=== PATIENT | female | born 1940 | race African-American/Black ===

== ENCOUNTER 2022-04-26 10:59 | Outpatient (CLI) | payer MEDICARE | END 2022-04-26 11:00 | disposition home or self-care (01) | LOC: CSHRAD 10:59 | PROVIDERS: ATTEND Internal Medicine | DX: M79.672 Pain in left foot (principal) ==

== ENCOUNTER 2022-12-17 10:08 | Outpatient (CLI) | payer MEDICARE | END 2022-12-17 10:09 | disposition home or self-care (01) | LOC: CSHRAD 10:08 | PROVIDERS: ATTEND Internal Medicine | DX: M79.645 Pain in left finger(s) (principal); M19.032 Primary osteoarthritis, left wrist ==